=== PATIENT | female | born 1995 | race African-American/Black ===

== ENCOUNTER 2020-02-19 08:27 | Emergency (ER) | payer MEDICAID ==
[~2020-02-19] VITALS: Ht 165.1 cm; Wt 81.0 kg
[2020-02-19] MEDS ORDERED: IBUPROFEN 600MG TABLET PO ONE (09:00)
[2020-02-19] MEDS ORDERED: HYDROCODONE/ACETAMINOPHEN 5/325MG TABLET PO ONE (10:45)
[2020-02-19 11:15] VITALS: BP 137/81
== END 2020-02-19 11:38 | disposition home or self-care (01) ==
LOC: ER 08:27
DX: S82.844A Nondisplaced bimalleolar fracture of right lower leg, initial encounter for closed fracture (principal); Z88.5 Allergy status to narcotic agent; W10.8XXA Fall (on) (from) other stairs and steps, initial encounter; Y93.89 Activity, other specified; Y92.018 Other place in single-family (private) house as the place of occurrence of the external cause
CPT/HCPCS: 29515; 73590; 73610; 73620; 99284

== ENCOUNTER 2024-12-13 11:57 | Emergency (ER) | payer SELFPAY ==
[~2024-12-13] VITALS: Ht 157.5 cm; Wt 85.7 kg
[2024-12-13 12:01] VITALS: O2SAT 100
[2024-12-13 12:08] VITALS: BP 114/78; PULSE 89; RESP 16; TEMP 36.7; O2SAT 100
[2024-12-13] MEDS ORDERED: ACET-2708 MT (13:02)
== END 2024-12-13 13:25 | disposition home or self-care (01) ==
LOC: ER 11:57
DX: M25.572 Pain in left ankle and joints of left foot (principal); Z88.5 Allergy status to narcotic agent; X58.XXXA Exposure to other specified factors, initial encounter; Y93.89 Activity, other specified; Y92.89 Other specified places as the place of occurrence of the external cause; Y99.8 Other external cause status
CPT/HCPCS: 99283; 29515; 73610; A6449

== ENCOUNTER 2024-12-17 13:16 | Emergency (ER) | payer SELFPAY ==
[~2024-12-17] VITALS: Ht 157.5 cm; Wt 86.0 kg
[~2024-12-17 13:16] MED LIST: ACET-2708 MT
[2024-12-17 13:38] VITALS: O2SAT 98
[2024-12-17 16:45] VITALS: BP 125/60; PULSE 95; RESP 16; TEMP 36.8; O2SAT 98
== END 2024-12-17 15:45 | disposition home or self-care (01) ==
LOC: ER 13:26
DX: S82.892A Other fracture of left lower leg, initial encounter for closed fracture (principal); Z88.5 Allergy status to narcotic agent; X58.XXXA Exposure to other specified factors, initial encounter; Y93.89 Activity, other specified; Y92.89 Other specified places as the place of occurrence of the external cause; Y99.8 Other external cause status
CPT/HCPCS: 99283; 29515; A6449